=== PATIENT | female | born 1995 | race Caucasian/White ===

== ENCOUNTER 2021-03-10 09:55 | Emergency (ER) | payer BC, OTHER ==
[~2021-03-10] VITALS: Ht 154.9 cm; Wt 48.1 kg
--- NOTE | 2021-03-10 09:55 | NUR ---
PT [id number] FROM [facility] C/O WITNESSED SYNCOPAL EPISODE AFTER COVID VACCINE SHOT. PT IS AAOX4, NOT IN RESPIRATORY DISTRESS, HOOKED TO CLINICAL RESEARCH MANAGER, KEPT RESTED AND COMFORTABLE. WILL CONTINUE TO MONITOR.
[2021-03-10 11:07] VITALS: BP 112/58
--- NOTE | 2021-03-10 11:07 | NUR ---
IV removed. Catheter intact and site benign. Pressure and 4x4 applied to site. No bleeding noted. Patient discharged to home in stable condition. Written and verbal after care instructions given. Patient verbalizes understanding of instruction.
== END 2021-03-10 11:08 | disposition home or self-care (01) ==
LOC: ER 09:57
DX: R55 Syncope and collapse (principal)